=== PATIENT | male | born 2000 | race Caucasian/White ===

== ENCOUNTER 2023-08-17 20:13 | Emergency (ER) | payer BC ==
[2023-08-17] MEDS ORDERED: Ondansetron PF 4 MG/2 ML Vial ONE (20:58)
[2023-08-17] MEDS ORDERED: Ketorolac Tromethamine 30 MG/ML VIAL ONE (20:58)
[2023-08-17 21:16] LABS: #Eosinphils 0.1 10x3/uL (0.0-0.5); #Monocytes 1.2 10x3/uL (0.0-1.1); #Neutrophils 7.5 10x3/uL (1.5-8.4); %Basophils 0.3 % (0.0-2.0); %Eosinophils 1.2 % (0.0-6.0); %Lymphocytes 7.1 % (18.0-47.0); %Monocytes 12.5 % (0.0-10.0); %Neutrophils 78.7 % (40.0-75.0); Hematocrit 40.8 % (38.8-50.0); Hemoglobin 14.3 g/dL (13.5-17.5); Mean Corpuscular Volume 85.7 fl (81.2-95.1); Platelet Count 224 10x3/uL (150-450); RBC Distribution Width 12.4 % (11.5-14.5); Red Blood Cell (RBC) Count 4.76 10x6/uL (4.32-5.72); White Blood Cell (WBC) Count 9.5 10x3/uL (3.5-10.5)
[2023-08-17 21:24] LABS: ALT (SGPT) 28 U/L (8-55); AST (SGOT) 26 U/L (5-34); Alkaline Phosphatase 124 U/L (40-110); Anion Gap 14 mmol/L (10-20); BUN (Urea Nitrogen) 12 mg/dL (8.9-20.6); Bilirubin, Total 1.2 mg/dL (0.2-1.2); CK (CPK) 193 U/L (30-200); Calc. Creatinine Clearance 0 mL/min (70-130); Calcium 8.9 mg/dL (7.8-10.44); Carbon Dioxide 23 mmol/L (22-29); Chloride 100 mmol/L (98-107); Estimated GFR 131; Globulin 3.3 g/dL (2.4-3.5); Glucose 105 mg/dL (70-105); Lipase 6 U/L (8-78); Potassium 3.1 mmol/L (3.5-5.1); Protein, Total 7.3 g/dL (6.0-8.3); Sodium 134 mmol/L (136-145)
[2023-08-17] MEDS ORDERED: Potassium Bicarbonate/Cit Ac 25 MEQ TAB ONE (22:10)
[2023-08-17 22:19] LABS: SARS-CoV-2 NAA Rapid Test Not Detected (NotDetected)
[2023-08-17 22:58] LABS: Bilirubin Neg (Negative); Blood, Urine 25 (Negative); Clarity Clear (Clear); Glucose, Urine (Dipstick) Normal (Negative); Ketone, Urine 50 mg/dL (Negative); Leukocyte Negative (Negative); Nitrite Negative (Negative); Protein, Urine (Dipstick) Negative (Neg-Trace); Specific Gravity, Urine 1.015 (1.005-1.030)
[2023-08-17 23:06] LABS: Amphetamine Not Detected (NotDetected); Barbiturates Screen Not Detected (NotDetected); Benzodiazepine Screen Not Detected (NotDetected); Cocaine Metabolite Screen Not Detected (NotDetected); Methadone Not Detected (NotDetected); Methamphetamine Not Detected (NotDetected); Opiate Screen Not Detected (NotDetected); Oxycodone Screen Not Detected (NotDetected); Phencyclidine (PCP) Not Detected (NotDetected); THC/Cannabinoid Screen Not Detected (NotDetected); Tricyclic Screen Not Detected (NotDetected)
[2023-08-17 23:15] LABS: Bacteria/HPF None Seen HPF (None Seen); CAUTI Indications for Culture Fever or rigors; Squamous Epithelial None Seen HPF (0-3); WBC/HPF 0-3 HPF (0-3)
[2023-08-17 23:17] LABS: Urine Culture Reflex No No
== END 2023-08-17 23:54 | disposition home or self-care (01) ==
LOC: CSHERS 20:13
DX: R31.9 Hematuria, unspecified (principal); R25.2 Cramp and spasm; Z20.822 Contact with and (suspected) exposure to COVID-19
CPT/HCPCS: 36415; 71045; 80053; 80306; 81001; 82550; 83690; 84443; 85025; 99284; J1885; J2405